=== PATIENT | male | born 1965 | race Caucasian/White ===

== ENCOUNTER 2017-01-31 08:36 | Emergency (ER) | payer SELFPAY ==
[~2017-01-31] VITALS: Ht 182.9 cm; Wt 95.3 kg
--- NOTE | 2017-01-31 09:00 | ED Lower Extremity ---
General Chief Complaint: Lower Extremity Stated Complaint: R LEG SWELLING/REDNESS Nursing Triage Note: PT CO OF PAIN SWELLING, TENDERNESS AND REDNESS OF R LOWER EXT FROM ANKLE TO MID CALF, STATES STARTED A FEW DAYS AGO Nursing Sepsis Screen: No Definite Risk Source: patient Exam Limitations: no limitations History of Present Illness Time seen by provider: 08:53 Initial Comments Patient states he's had 2 days of chills and increasing redness and swelling around his right calf. He states he has mild shortness of breath and chest pain. He also states that he is having a cellulitis that when the remission a few months ago. Having quite a bit of pain but no nausea. He has able to walk on this leg. He states that the original cellulitis was after a spider bite on his right leg. He has not recently wounded this leg and there is no drainage. 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 He is not attending NA. Allergies and Home Medications Allergies Coded Allergies: No Known Drug Allergies (Unverified , 06/14/16) Home Medications No Active Prescriptions or Reported Meds Constitutional: see HPI, chills, No fever, malaise Respiratory: No dyspnea on exertion, No hemoptysis, No phlegm, short of breath , No wheezing Cardiovascular: No chest pain, No palpitations, No syncope Gastrointestinal: No abdominal pain, No constipation, No diarrhea Musculoskeletal: see HPI, other (right calf pain) Skin: No pruritus, rash Past Stfpdnu-Ltldrz-Aqijjc Hx Patient Social History Alcohol Use: Denies Use Recreational Drug Use: Yes (Hx IV Meth years ago) Drug of Choice: meth Smoking Status: Current Everyday Smoker Type Used: Cigarettes Recent Foreign Travel: No Contact w/Someone Who Travel: No Recent Infectious Disease Expo: No Recent Hopitalizations: No Immunizations Up To Date Tetanus Booster (TDap): Less than 5yrs PED Vaccines UTD: No Seasonal Allergies Seasonal Allergies: Yes Surgeries HX Surgeries: Yes (hernia repair) Surgeries: Abdominal Respiratory Hx Respiratory Disorders: No Cardiovascular Hx Cardiac Disorders: No Neurological Hx Neurological Disorders: No Reproductive System Hx Reproductive Disorders: No Sexually Transmitted Disease: No HIV/AIDS: No Genitourinary Hx Genitourinary Disorders: No Musculoskeletal Hx Musculoskeletal Disorders: Yes (broke knuckles multiple times) Endocrine Hx Endocrine Disorders: No HEENT HX ENT Disorders: No Cancer Hx Cancer: No Psychosocial Hx Psychiatric Problems: No Integumentary HX Skin/Integumentary Disorder: No Blood Transfusions Hx Blood Disorders: No Adverse Reaction to a Blood Tr: No Physical Exam Vital Signs Vital Sign - Last 12Hours 01/31/17 08:45 Temp 98.2 Pulse 78 Resp 18 B/P (MAP) 124/72 Pulse Ox 98 Capillary Refill : Less Than 3 Seconds General Appearance: WD/WN, no apparent distress Neck: non-tender, normal inspection Cardiovascular: normal peripheral pulses, regular rate, rhythm Respiratory: lungs clear, normal breath sounds, no respiratory distress, no accessory muscle use Gastrointestinal: normal bowel sounds, non tender Back: normal inspection, no CVA tenderness Neurologic/Tendon: normal sensation, normal motor functions, normal tendon functions, responds to pain Neurologic/Psychiatric: no motor/sensory deficits, alert, oriented x 3 Skin: rash (red/purpuric circumferential rash right calf extending from the top of the ankle to just below the knee. No palpable masses or discharge. A few excoriations noted.) Lymphatic: no adenopathy Progress/Results/Core Measures Results/Orders Lab Results Laboratory Tests Test 01/31/17 09:25 Range/Units White Blood Count 8.3 4.3-11.0 10^3/uL Red Blood Count 4.44 4.35-5.85 10^6/uL Hemoglobin 13.6 13.3-17.7 G/DL Hematocrit 39 L 40-54 % Mean Corpuscular Volume 88 80-99 FL Mean Corpuscular Hemoglobin 31 25-34 PG Mean Corpuscular Hemoglobin Concent 35 32-36 G/DL Red Cell Distribution Width 13.1 10.0-14.5 % Platelet Count 173 130-400 10^3/uL Mean Platelet Volume 11.3 H 7.4-10.4 FL Neutrophils (%) (Auto) 70 42-75 % Lymphocytes (%) (Auto) 19 12-44 % Monocytes (%) (Auto) 9 0-12 % Eosinophils (%) (Auto) 2 0-10 % Basophils (%) (Auto) 0 0-10 % Neutrophils # (Auto) 5.8 1.8-7.8 X 10^3 Lymphocytes # (Auto) 1.6 1.0-4.0 X 10^3 Monocytes # (Auto) 0.7 0.0-1.0 X 10^3 Eosinophils # (Auto) 0.2 0.0-0.3 10^3/uL Basophils # (Auto) 0.0 0.0-0.1 10^3/uL Sodium Level 139 135-145 MMOL/L Potassium Level 4.0 3.6-5.0 MMOL/L Chloride Level 107 98-107 MMOL/L Carbon Dioxide Level 20 L 21-32 MMOL/L Anion Gap 12 5-14 MMOL/L Blood Urea Nitrogen 21 H 7-18 MG/DL Creatinine 1.14 0.60-1.30 MG/DL Estimat Glomerular Filtration Rate > 60 BUN/Creatinine Ratio 18 Glucose Level 118 H 70-105 MG/DL Lactic Acid Level 0.82 0.50-2.00 MMOL/L Calcium Level 9.2 8.5-10.1 MG/DL Total Bilirubin 0.7 0.1-1.0 MG/DL Aspartate Amino Transf (AST/SGOT) 20 5-34 U/L Alanine Aminotransferase (ALT/SGPT) 19 0-55 U/L Alkaline Phosphatase 79 40-136 U/L Total Protein 7.5 6.4-8.2 GM/DL Albumin 3.8 3.2-4.5 GM/DL My Orders Orders - ENE DIAZ Cbc With Automated Diff (01/31/17 09:02) Comprehensive Metabolic Panel (01/31/17 09:02) Lactic Acid Analyzer (01/31/17 09:02) Blood Culture (01/31/17 09:02) Us Venous Lower Ext Rt (01/31/17 09:02) Fentanyl Injection (Sublimaze Injection (01/31/17 09:02) Saline Lock/Iv-Start (01/31/17 09:02) Ns Iv 1000 Ml (Sodium Chloride 0.9%) (01/31/17 09:02) Ondansetron Injection (Zofran Injectio (01/31/17 09:15) Medications Given in ED Current Medications Medications Dose Ordered Sig/Ashley Route Start Time Stop Time Status Last Admin Dose Admin Ondansetron HCl 4 mg ONCE ONCE IVP 01/31/17 09:15 01/31/17 09:16 DC 01/31/17 09:31 4 MG Sodium Chloride 1,000 ml @ 0 mls/hr Q0M ONCE IV 01/31/17 09:02 01/31/17 09:05 DC 01/31/17 09:31 1,000 MLS/HR Vital Signs/I&O Vital Sign - Last 12Hours 01/31/17 08:45 Temp 98.2 Pulse 78 Resp 18 B/P (MAP) 124/72 Pulse Ox 98 Blood Pressure Mean: 89 Progress Note #1: Time: 09:39 Progress Note Patient presents with what appears to be acute cellulitis but with his mild shortness of breath and history of IVDA it is possible it could have a DVT or PE so we will perform a ultrasound of the right lower leg. Vital signs are stable at this time but will obtain lab to rule out sepsis to determine whether or not he would be amenable to outpatient oral antibiotics versus inpatient IV antibiotics for the treatment of his presumed cellulitis. Progress Note #2: Time: 10:27 Progress Note Is mildly ascitic but there is no white count and sepsis is ruled out. Lactate is normal. We'll give him Rocephin and set him up outpatient cephalosporins and follow-up with his PCP. Diagnostic Imaging Diagonstic Imaging: Ultrasound Plain Films/CT/US/NM/MRI: leg (r) Comments NAME: REJI PHILIPPE [facility] REC#: [id number] PT STATUS: REG ER : 1965 PHYSICIAN: ENE DIAZ MD ADMIT DATE: 01/31/17/ER Draft Date of Exam:01/31/17 US VENOUS LOWER EXT RT PROCEDURE: US right lower extremity venous. TECHNIQUE: Multiple real-time grayscale images were obtained over the right lower extremity in various projections. Additional duplex Doppler and color Doppler images were also obtained. INDICATION: Right leg redness. FINDINGS: The femoral and popliteal deep venous systems patent and showed normal compressibility, normal color flow and normal duplex waveforms. No deep or superficial thrombi. No mass or fluid collection documented. IMPRESSION: Negative right lower extremity venous Doppler and ultrasound exam. Dictated on workstation # [id number] Dict: 01/31/17 1011 Trans: 01/31/17 1016 [facility] [id number] Interpreted by: KRISTA BRANCH Reviewed: Reviewed by Me Departure Impression Impression: Primary Impression: Cellulitis of right lower extremity Disposition: HOME, SELF-CARE Condition: Improved Departure-Patient Inst. Referrals: NO,LOCAL PHYSICIAN (PCP/Family) Primary Care Physician Patient Instructions: Cellulitis (Skin Infection), Adult (DC) Add. Discharge Instructions: You will be given antibiotics that'll cover you for today through your IV. Tomorrow you will need to start the Keflex 3 times a day. Take it with food. If you're having any other problems such as nausea or vomiting, fevers, chills, worsening redness or pain then you should return to the ER or establish with a primary care physician. Keep the leg elevated and you can use ice, Tylenol 1000 mg 3 times a day, and/or ibuprofen 800 mg 3 times a day as needed to control your pain. All discharge instructions reviewed with patient and/or family. Voiced understanding. Scripts Cephalexin (Keflex) 500 Mg Capsule 500 MG PO TIDWM for 10 Days, #30 CAP 0 Refills Prov: ENE DIAZ 01/31/17 ENE DIAZ Jan 31, 2017 09:00
[2017-01-31] MEDS ORDERED: NS IV 1000 ML 1,000 ML IV ONE (09:02)
[2017-01-31] MEDS ORDERED: fentaNYL INJECTION 100 MCG/2 ML AMP IVP STA (09:02)
[2017-01-31] MEDS ORDERED: ONDANSETRON 4 MG/2 ML (SDV) Z0FRAN IVP ONE (09:15)
[2017-01-31 09:46] LABS: BASOPHILS % (AUTO) 0 % (0-10); EOSINOPHILS # (AUTO) 0.2 10^3/uL (0.0-0.3); EOSINOPHILS % (AUTO) 2 % (0-10); LYMPHOCYTES # (AUTO) 1.6 X 10^3 (1.0-4.0); LYMPHOCYTES % (AUTO) 19 % (12-44); MEAN CORPUSCULAR HEMOGLOBIN 31 PG (25-34); MEAN CORPUSCULAR HGB CONC 35 G/DL (32-36); MEAN CORPUSCULAR VOLUME 88 FL (80-99); MEAN PLATELET VOLUME 11.3 FL (7.4-10.4); MONOCYTES # (AUTO) 0.7 X 10^3 (0.0-1.0); MONOCYTES % (AUTO) 9 % (0-12); NEUTROPHILS # (AUTO) 5.8 X 10^3 (1.8-7.8); NEUTROPHILS % (AUTO) 70 % (42-75); PLATELET COUNT 173 10^3/uL (130-400); RED BLOOD COUNT 4.44 10^6/uL (4.35-5.85); RED CELL DISTRIBUTION WIDTH 13.1 % (10.0-14.5); WHITE BLOOD COUNT 8.3 10^3/uL (4.3-11.0)
[2017-01-31 10:09] LABS: ALANINE AMINOTRANSFERASE 19 U/L (0-55); ALBUMIN 3.8 GM/DL (3.2-4.5); ANION GAP 12 MMOL/L (5-14); ASPARTATE AMINO TRANSFERASE 20 U/L (5-34); BILIRUBIN,TOTAL 0.7 MG/DL (0.1-1.0); BLOOD UREA NITROGEN 21 MG/DL (7-18); BUN/CREATININE RATIO 18; CALCIUM 9.2 MG/DL (8.5-10.1); CARBON DIOXIDE 20 MMOL/L (21-32); CHLORIDE 107 MMOL/L (98-107); CREATININE SERUM 1.14 MG/DL (0.60-1.30); GFR ESTIMATED > 60; GLUCOSE 118 MG/DL (70-105); SODIUM 139 MMOL/L (135-145); TOTAL PROTEIN 7.5 GM/DL (6.4-8.2)
--- NOTE | 2017-01-31 10:16 | Diagnostic Imaging Report ---
PROCEDURE: US right lower extremity venous. TECHNIQUE: Multiple real-time grayscale images were obtained over the right lower extremity in various projections. Additional duplex Doppler and color Doppler images were also obtained. INDICATION: Right leg redness. FINDINGS: The femoral and popliteal deep venous systems patent and showed normal compressibility, normal color flow and normal duplex waveforms. No deep or superficial thrombi. No mass or fluid collection documented. IMPRESSION: Negative right lower extremity venous Doppler and ultrasound exam. Dictated by: Dictated on workstation # [id number]
[2017-01-31] MEDS ORDERED: cefTRIAXone INJECTION 1,000 MG in NS (IVPB) 50 ML IV ONE (10:30)
[2017-01-31] MEDS ORDERED: CEPH-507 PO (10:39)
[2017-01-31 10:58] VITALS: BP 122/68
== END 2017-01-31 10:58 | disposition home or self-care (01) ==
LOC: EDUNIT# 08:36 → ER 08:37
DX: L03.115 Cellulitis of right lower limb (principal); F17.210 Nicotine dependence, cigarettes, uncomplicated
CPT/HCPCS: 36415; 80053; 83605; 85027; 87040; 96361; 96374; 96375